=== PATIENT | female | born 1970 | race Two or more races ===

== ENCOUNTER 2018-12-19 18:48 | Emergency (ER) | payer OTHER ==
[~2018-12-19] VITALS: Ht 152.4 cm; Wt 90.9 kg
[2018-12-19 19:05] VITALS: Ht 152.4 cm; Wt 90.9 kg
[2018-12-19 20:52] LABS: HCG SERUM NEGATIVE (NEGATIVE)
[2018-12-19 20:54] LABS: APPEARANCE CLEAR (CLEAR); BILIRUBIN NEGATIVE (NEGATIVE); COLOR STRAW (YELLOW); GLUCOSE 50 mg/dL (NEGATIVE); KETONE SMALL mg/dL (NEGATIVE); NITRITE NEGATIVE (NEGATIVE); PROTEIN 1+ mg/dL (NEGATIVE); UROBILINOGEN NORMAL (NORMAL)
[2018-12-19 20:58] LABS: RED CELLS - URINE 0-5 /hpf (0-5); WHITE CELLS - URINE 0-5 /hpf (0-5)
[2018-12-19 20:59] LABS: EPITHELIAL CELLS 0-5 /hpf (0-5)
[2018-12-19 21:00] LABS: BACTERIA FEW /hpf (NONE SEEN)
[2018-12-19 21:28] LABS: BASOPHILS 0.4 % (0-2); EOSINOPHILS 0.4 % (0-7); HEMATOCRIT 38.5 % (36.0-48.0); HEMOGLOBIN 12.3 g/dL (12-16); IMMATURE GRANULOCYTES 0.2 % (0-5); LYMPHOCYTES 17.8 % (15-50); MCH 23.8 pg (26.0-34.0); MCHC 31.9 g/dL (31.0-37.0); MCV 74.6 fL (80.0-100.0); MEAN PLATELET VOLUME 11.3 fL (7.4-10.4); MONOCYTES 5.6 % (2-11); NEUTROPHILS 75.6 % (40-80); PLATELET COUNT 231 10x3/uL (130-400); RBC 5.16 10x6/uL (4.00-5.40); RDW 15.5 % (11.5-14.5); WBC 11.8 10x3/uL (4.8-10.8)
[2018-12-19 21:38] LABS: UDS - AMPHET NEGATIVE QUAL (NEGATIVE); UDS - BARB NEGATIVE QUAL (NEGATIVE); UDS - BENZO NEGATIVE QUAL (NEGATIVE); UDS - COCAINE NEGATIVE QUAL (NEGATIVE); UDS - OPIATE NEGATIVE QUAL (NEGATIVE); UDS - PCP NEGATIVE QUAL (NEGATIVE); UDS - THC NEGATIVE QUAL (NEGATIVE)
[2018-12-19 21:41] LABS: ALBUMIN 3.2 g/dL (3.4-5.0); ALKALINE PHOSPHATASE 79 U/L (46-116); ALT (SGPT) 24 U/L (10-68); BILIRUBIN - TOTAL 0.41 mg/dL (0.2-1.3); CALC OSMOLALITY 276 mosm/kg (275-300); CALCIUM 8.6 mg/dL (8.5-10.1); CARBON DIOXIDE 27.9 mmol/L (21.0-32.0); CHLORIDE - SERUM 100 mmol/L (98-107); CREATININE - SERUM 0.6 mg/dL (0.6-1.3); GLUCOSE 222 mg/dL (74-106); POTASSIUM - SERUM 3.9 mmol/L (3.5-5.1); PROTEIN - SERUM 7.3 g/dL (6.4-8.2); SODIUM 136 mmol/L (136-145); UREA NITROGEN 8 mg/dL (7-18); eGFR NON AFRICAN AMERICAN > 90 mL/min (90-120)
[2018-12-19 21:52] LABS: MAGNESIUM - SERUM 1.7 mg/dL (1.8-2.4)
[2018-12-20 02:57] VITALS: BP 122/71
[2018-12-20] MEDS ORDERED: LISINOPRIL5 MG PO (04:30)
[2018-12-20] MEDS ORDERED: GLUCOPHAGE1000 MG PO (04:30)
[2018-12-20] MEDS ORDERED: FERROUS SULFAT325 MG PO (04:32)
== END 2018-12-20 11:40 ==
LOC: D.ER 18:48
PROVIDERS: Family Medicine
DX: F41.9 Anxiety disorder, unspecified (principal); R45.850 Homicidal ideations; R45.4 Irritability and anger